=== PATIENT | female | born 1940 | race Caucasian/White ===

== ENCOUNTER 2020-03-13 01:06 | Emergency (ER) | payer MEDICARE, OTHER ==
[~2020-03-13] VITALS: Ht 162.6 cm; Wt 54.0 kg
--- NOTE | 2020-03-13 01:22 | PHYS DOC ---
Past History Past Medical History: Anxiety, Arthritis, Dementia, Hypertension, Hyperthyroid, Hypothyroid General Adult EDM: Chief Complaint: MECHANICAL FALL HPI: HPI: ".. I was walking without my walker... and I fell backwards.. and hit my head... I have vertigo... ".." I have meds for it.. but I was out of them..." Patient is a 80 year old female who presents with above hx and vertigo and fall. Patient struck the back of her head. No loss of consciousness. Does have a contusion and upper neck tenderness. Denies other injury. Does have history of arthritis, vertigo, thyroid mass, and. The patient, no recent travel. No specific ill contacts. Patient normally follows Dr. Reeves. Review of Systems: Review of Systems: Constitutional: Denies fever or chills Eyes: Denies change in visual acuity HENT: Complains of head and neck injury Respiratory: Denies cough or shortness of breath Cardiovascular: Denies chest pain or edema GI: Denies abdominal pain, nausea, vomiting, bloody stools or diarrhea : Denies dysuria Musculoskeletal: Denies back pain or joint pain Integument: Denies rash Neurologic: Denies headache, focal weakness or sensory changes Endocrine: Denies polyuria or polydipsia Lymphatic: Denies swollen glands Psychiatric: Denies depression or anxiety Family History: Family History: Noncontributory to presentation Current Medications: Current Meds: See nursing for home meds Allergies: Allergies: Allergies Coded Allergies Type Severity Reaction Last Updated Verified No Known Allergies Allergy Unknown 03/13/20 Yes Physical Exam: PE: Constitutional: Mild to moderate distress, non-toxic appearance. [] HENT: Normocephalic, contusion to posterior scalp, bilateral external ears normal, oropharynx moist, no oral exudates, nose normal. [] Eyes: PERRLA, EOMI, conjunctiva normal, no discharge. [] Neck: Normal range of motion, upper neck tenderness, supple, no stridor. Large surgical scar across her upper chest and lower neck Cardiovascular:Heart rate regular rhythm, no murmur, PMI to the left Lungs & Thorax: Bilateral breath sounds equal apex on auscultation [] Abdomen: Bowel sounds normal, soft, no tenderness, no masses, no pulsatile m asses. Old surgery scar Skin: Warm, dry, no erythema, no rash. Poor turgor Back: No tenderness, no CVA tenderness. [] Extremities: No tenderness, no cyanosis, no clubbing, ROM intact, no edema. No cording. Arthritic changes. Neurologic: Alert and oriented X 3, moves all extremities on request, has distal sensory,, no focal deficits noted. [] Mild tremor. Psychologic: Affect anxious , judgement normal, mood normal. [] EKG: EKG: [] Radiology/Procedures: Radiology/Procedures: [][address] [address] IMAGING REPORT Signed PATIENT: DEVORA SANTIZOOUNT: [id number] : 1940 LOCATION: ER AGE: 80 SEX: F EXAM STATUS: REG ER ORD. PHYSICIAN: MADISON GARCIA MD REASON: Fall from standing position, hit back head-neck and head pain PROCEDURE: CT HEAD AND CERVICAL SPINE WO INDICATION: Reason: Fall from standing position, hit back head-neck and head pain / Spl. Instructions: / History: . COMPARISON: None. TECHNIQUE: Axial CT images obtained through the cervical spine and head. One or more of the following individualized dose reduction techniques were util ized for this examination: 1. Automated exposure control; 2. Adjustment of the mA and/or kV according to patient size; 3. Use of iterative reconstruction technique. FINDINGS: Head: Calcific atherosclerosis. Diffuse prominence of ventricles and sulci which can be seen with age-related volume loss. There is some high density fluid seen within the sphenoid sinus. Multifocal low density throughout the white matter. No acute intracranial hemorrhage. Cervical spine: Degenerative changes throughout the cervical spine with disc osteophyte complexes as well as facet and uncovertebral hypertrophy with multilevel central canal and neural foraminal stenosis. Grade 1 anterolisthesis of C3 on 4 with mild retrolisthesis of C5 on 6 and C6 on 7. A definite acute fracture line is not seen IMPRESSION: * No acute intracranial hemorrhage. * Multifocal low density within the white matter. Nonspecific but can be seen with chronic small vessel ischemic disease. * Severe degenerative changes of the cervical spine with multiple levels of mikhail and retrolisthesis with central canal and neural foraminal stenosis. A definite acute fracture line is not seen. Electronically signed by: Galileo Paz MD (03/13/2020 3:15 AM) [id number] DICTATED AND SIGNED BY: GALILEO PAZ MD DATE: 03/13/20 0300 CC: MADISON GARCIA MD; BERT ESCALONA MD ~MTH0 0 Heart Score: Risk Factors: Risk Factors: DM, Current or recent (<one month) smoker, HTN, HLP, family histo ry of CAD, obesity. Risk Scores: Score 0 - 3: 2.5% MACE over next 6 weeks - Discharge Home Score 4 - 6: 20.3% MACE over next 6 weeks - Admit for Clinical Observation Score 7 - 10: 72.7% MACE over next 6 weeks - Early Invasive Strategies Course & Med Decision Making: Course & Med Decision Making Pertinent Labs and Imaging studies reviewed. (See chart for details) Still awaiting CT results- 0300 hrs. Pt. given trial meclizine for Vertigo complaints. Patient to follow-up primary care. Patient to use a walker even in the home. Patient return if any concerns. May have Tylenol for pain. Impression: 1. Trip and Fall 2. Hx. Vertigo 3. Head Contusion 4. Neck Spraiin 5. Cervical Canal Stenosis [] Dragon Disclaimer: Dragon Disclaimer: This electronic medical record was generated, in whole or in part, using a voice recognition dictation system. Departure Departure: Referrals: BERT ESCALONA MD (PCP) Scripts Meclizine HCl (Travel-Ease) 25 Mg Tablet 12.5 MG PO 1-2XD for vertigo, #30 TAB Prov: MADISON GARCIA MD 03/13/20 Dragon Disclaimer This chart was dictated in whole or in part using Voice Recognition software in a busy, high-work load, and often noisy Emergency Department environment. It may contain unintended and wholly unrecognized errors or omissions. Dragon Disclaimer This chart was dictated in whole or in part using Voice Recognition software in a busy, high-work load, and often noisy Emergency Department environment. It may contain unintended and wholly unrecognized errors or omissions. MADISON GARCIA MD Mar 13, 2020 01:22
--- NOTE | 2020-03-13 03:18 | RAD ---
INDICATION: Reason: Fall from standing position, hit back head-neck and head pain / Spl. Instructions : / History: . COMPARISON: None. TECHNIQUE: Axial CT images obtained through the cervical spine and head. One or more of the following individualized dose reduction techniques were utilized for this examinat ion: 1. Automated exposure control; 2. Adjustment of the mA and/or kV according to patient size; 3 . Use of iterative reconstruction technique. FINDINGS: Head: Calcific atherosclerosis. Diffuse prominence of ventricles and sulci which can be seen with age-related volume loss. There is some high density fluid seen within the sphenoid sinus. Multifocal low density throughout the white matter. No acute intracranial hemorrhage. Cervical spine: Degenerative changes throughout the cervical spine with disc osteophyte complexes as well as facet an d uncovertebral hypertrophy with multilevel central canal and neural foraminal stenosis. Grade 1 ante rolisthesis of C3 on 4 with mild retrolisthesis of C5 on 6 and C6 on 7. A definite acute fracture line is not seen IMPRESSION: * No acute intracranial hemorrhage. * Multifocal low density within the white matter. Nonspecific but can be seen with chronic small ves tiffany ischemic disease. * Severe degenerative changes of the cervical spine with multiple levels of mikhail and retrolisthesi s with central canal and neural foraminal stenosis. A definite acute fracture line is not seen. Electronically signed by: Reynaldo Jones MD (03/13/2020 3:15 AM) [id number]
[2020-03-13] MEDS ORDERED: MECLIZINE 12.5 MG TABLET. PO ONE (03:30)
[2020-03-13] MEDS ORDERED: MECL-87 PO (03:31)
[2020-03-13 04:00] VITALS: BP 123/54
== END 2020-03-13 04:00 | disposition home or self-care (01) ==
LOC: ER 01:06
DX: S13.9XXA Sprain of joints and ligaments of unspecified parts of neck, initial encounter (principal); S00.03XA Contusion of scalp, initial encounter; M48.02 Spinal stenosis, cervical region; R42 Dizziness and giddiness; F41.9 Anxiety disorder, unspecified; M19.90 Unspecified osteoarthritis, unspecified site; F03.90 Unspecified dementia, unspecified severity, without behavioral disturbance, psychotic disturbance, mood disturbance, and anxiety; I10 Essential (primary) hypertension; E03.9 Hypothyroidism, unspecified; E05.90 Thyrotoxicosis, unspecified without thyrotoxic crisis or storm; W01.0XXA Fall on same level from slipping, tripping and stumbling without subsequent striking against object, initial encounter; Y93.01 Activity, walking, marching and hiking; Y92.89 Other specified places as the place of occurrence of the external cause; Y99.8 Other external cause status
CPT/HCPCS: 70450; 72125; 99285

== ENCOUNTER 2020-10-10 14:26 | Emergency (ER) | payer MEDICARE, OTHER ==
[~2020-10-10] VITALS: Ht 152.4 cm; Wt 59.8 kg
[~2020-10-10 14:26] MED LIST: MECL-87 PO
--- NOTE | 2020-10-10 14:57 | RAD ---
EXAM: Chest, single view. HISTORY: Syncope. COMPARISON: None. FINDINGS: A frontal view of the chest obtained. There is left greater than right basilar atelectasis or interstitial infiltrate. No consolidation, pleural effusion or pneumothorax is seen. There is a pr ominent cardiac silhouette. IMPRESSION: Left greater than right basilar atelectasis or interstitial infiltrate. Electronically signed by: Renate Wood MD (10/10/2020 2:55 PM) [id number]
--- NOTE | 2020-10-10 15:04 | PHYS DOC ---
Past History Past Medical History: Anxiety, Arthritis, Dementia, Hypertension, Hyperthyroid, Hypothyroid Additional Past Medical Histor: hole in heart Past Surgical History: Hysterectomy Additional Past Surgical Histo: thyroid surgery Alcohol Use: Occasionally General Adult EDM: Chief Complaint: NEAR SYCOPE HPI: HPI: 80-year-old female presents with syncopal episode. The patient was feeling dizzy early in the morning. She got up to go to the bathroom after she stood up off of the toilet, she felt more dizzy and fell onto the floor. She crawled to the door of the bathroom and at the bottom she remembers. Most of this history comes from her family member head accompanies her. She told the story to him earlier today. The patient agreed with each part of the story but tells me she does not remember much after lying on the floor until her family member was talking with her at the house. At some point the patient made her way off the floor and down the stairs to the kitchen without assistance. Patient denies any pain at this time. She has no specific complaints. Review of Systems: Review of Systems: Constitutional: Denies fever or chills Eyes: Denies change in visual acuity HENT: Denies nasal congestion or sore throat Respiratory: Denies cough or shortness of breath Cardiovascular: Denies chest pain or edema GI: Denies abdominal pain, nausea, vomiting, bloody stools or diarrhea : Denies dysuria Musculoskeletal: Denies back pain or joint pain Integument: Denies rash Neurologic: Sncope. Denies headache, focal weakness or sensory changes Endocrine: Denies polyuria or polydipsia Lymphatic: Denies swollen glands Psychiatric: Denies depression or anxiety Allergies: Allergies: Allergies Coded Allergies Type Severity Reaction Last Updated Verified No Known Allergies Allergy Unknown 03/13/20 Yes Physical Exam: PE: Constitutional: Well developed, well nourished, no acute distress, non-toxic appearance. [] HENT: Normocephalic, atraumatic, bilateral external ears normal, oropharynx moist, no oral exudates, nose normal. [] Eyes: PERRLA, EOMI, conjunctiva normal, no discharge. [] Neck: Normal range of motion, no tenderness, supple, no stridor. [] Cardiovascular: Heart rate regular rhythm, no murmur [] Lungs & Thorax: Bilateral breath sounds clear to auscultation [] Abdomen: Bowel sounds normal, soft, no tenderness, no masses, no pulsatile masses. [] Skin: Warm, dry, no erythema, no rash. [] Back: No tenderness, no CVA tenderness. [] Extremities: No tenderness, no cyanosis, no clubbing, ROM intact, no edema. [] Neurologic: Alert and oriented X 3, normal motor function, memory impairment, normal sensory function, no focal deficits noted. [] Psychologic: Affect normal, judgement normal, mood normal. [] Current Patient Data: Vital Signs: Vital Signs Date Time Temp Pulse Resp B/P (MAP) Pulse Ox O2 Delivery O2 Flow Rate FiO2 10/10/20 14:38 97.9 64 18 114/59 Room Air EKG: EKG: Sinus rhythm, rate 62, leftward axis, no ST elevation or depression. [] Radiology/Procedures: Radiology/Procedures: [] Impressions: EXAM: Chest, single view. HISTORY: Syncope. COMPARISON: None. FINDINGS: A frontal view of the chest obtained. There is left greater than right basilar atelectasis or interstitial infiltrate. No consolidation, pleural effusion or pneumothorax is seen. There is a prominent cardiac silhouette. IMPRESSION: Left greater than right basilar atelectasis or interstitial infiltrate. Electronically signed by: Renate Wood MD (10/10/2020 2:55 PM) [id number] DICTATED AND SIGNED BY: RENATE WOOD MD DATE: 10/10/20 1454 CC: JERAMY LIEBERMAN DO; PCP,NO ~MTH0 0 Heart Score: C/O Chest Pain: N/A Risk Factors: Risk Factors: DM, Current or recent (<one month) smoker, HTN, HLP, family history of CAD, obesity. Risk Scores: Score 0 - 3: 2.5% MACE over next 6 weeks - Discharge Home Score 4 - 6: 20.3% MACE over next 6 weeks - Admit for Clinical Observation Score 7 - 10: 72.7% MACE over next 6 weeks - Early Invasive Strategies Course & Med Decision Making: Course & Med Decision Making Pertinent Labs and Imaging studies reviewed. (See chart for details) The patient's labs are unremarkable. Her chest x-ray shows possible infiltrate, but her symptoms and labs do not support this. Her urinalysis is positive for infection. I will treat her with fosfomycin in the ED. She is feeling much better. She would like to go home. I believe this is reasonable. She is stable for discharge at this time. [] Mary Disclaimer: Mary Disclaimer: This electronic medical record was generated, in whole or in part, using a voice recognition dictation system. Departure Departure: Impression: Primary Impression: Near syncope Additional Impression: UTI (urinary tract infection) Qualified Codes: N30.00 - Acute cystitis without hematuria Disposition: HOME / SELF CARE / HOMELESS Condition: STABLE Referrals: [facility] (PCP) Patient Instructions: Near-Syncope, [id number], Urinary Tract Infection, [id number] JERAMY LIEBERMAN DO Oct 10, 2020 15:04
[2020-10-10 15:40] LABS: BASO # 0.1 x10^3/uL (0.0-0.2); BASO % 1 % (0-3); EOS # 0.2 x10^3/uL (0.0-0.7); EOS % 2 % (0-3); HEMATOCRIT 34.4 % (36.0-47.0); HEMOGLOBIN 11.1 g/dL (12.0-15.5); LYMPH # 1.6 x10^3/uL (1.0-4.8); LYMPH % 17 % (24-48); MEAN CORPUSCULAR HEMOGLOBIN 31 pg (25-35); MEAN CORPUSCULAR HGB CONC 32 g/dL (31-37); MEAN CORPUSCULAR VOLUME 97 fL (79-100); MONO # 0.8 x10^3/uL (0.0-1.1); MONO % 9 % (0-9); NEUT # 6.6 x10^3uL (1.8-7.7); NEUT % 71 % (31-73); PLATELET COUNT 314 x10^3/uL (140-400); RED BLOOD COUNT 3.55 x10^6/uL (3.50-5.40); RED CELL DISTRIBUTION WIDTH 16.3 % (11.5-14.5); WHITE BLOOD COUNT 9.2 x10^3/uL (4.0-11.0)
[2020-10-10 15:42] LABS: CALCIUM 8.9 mg/dL (8.5-10.1); GFR 53.2; POTASSIUM 4.3 mmol/L (3.5-5.1)
[2020-10-10 15:48] LABS: ALBUMIN 3.2 g/dL (3.4-5.0); ALBUMIN/GLOBULIN RATIO 1.1 (1.0-1.7); TOTAL BILIRUBIN 0.5 mg/dL (0.2-1.0); TOTAL PROTEIN 6.2 g/dL (6.4-8.2)
--- NOTE | 2020-10-10 16:01 | EKG ---
[address] [address] Test Date: 2020-10-10 Test Time: 14:46:32 Pat Name: DEVORA SANTIZO Department: Room: Gender: F Director Custom: ADELAIDA : 1940 Requested By: JERAMY LIEBERMAN Order Number: [id number] Reading MD: Measurements Intervals [place] Rate: 62 P: 14 [place]: 180 QRS: -2 QRSD: 86 T: 27 QT: 438 QTc: 447 Interpretive Statements SINUS RHYTHM LEFTWARD AXIS ST & T ABNORMALITY, CONSIDER ANTEROLATERAL ISCHEMIA OR LEFT VENTRICULAR STRAIN T ABNORMALITY IN ANTERIOR LEADS ABNORMAL ECG RI6.02 No previous ECG available for comparison
[2020-10-10 16:22] LABS: BACTERIA,URINE MOD /HPF (0-FEW); BILIRUBIN,URINE NEG (NEG); CLARITY,URINE CLOUDY; COLOR,URINE YELLOW; GLUCOSE,URINE NEG (NEG); NITRITE,URINE POS (NEG); RBC,URINE 0 /HPF (0-2); SQUAMOUS EPITHELIAL CELL,UR MOD /LPF; UROBILINOGEN,URINE 0.2 mg/dL (0.2 mg/dL)
[2020-10-10 16:59] VITALS: BP 113/64
[2020-10-10] MEDS ORDERED: FOSFOMYCIN TROMETHAMINE 3 GM PACKET PO ONE (17:15)
== END 2020-10-10 17:25 | disposition home or self-care (01) ==
LOC: ER 14:26
DX: R55 Syncope and collapse (principal); N30.00 Acute cystitis without hematuria; F41.9 Anxiety disorder, unspecified; M19.90 Unspecified osteoarthritis, unspecified site; F03.90 Unspecified dementia, unspecified severity, without behavioral disturbance, psychotic disturbance, mood disturbance, and anxiety; I10 Essential (primary) hypertension; E03.9 Hypothyroidism, unspecified; E05.90 Thyrotoxicosis, unspecified without thyrotoxic crisis or storm
CPT/HCPCS: 36415; 71045; 80053; 81001; 84484; 85025; 87086; 93005; 99285-25